=== PATIENT | female | born 1970 | race Caucasian/White ===

== ENCOUNTER 2023-12-18 12:35 | Outpatient (REF) | payer OTHER, SELFPAY ==
--- NOTE | ~2023-12-18 | XR_ITS ---
EXAMINATION: XR CLAVICLE, LEFT CLINICAL INFORMATION: Pain COMPARISON: None available. TECHNIQUE: 2 views of the left clavicle. FINDINGS: There is a mildly displaced comminuted fracture along the distal/lateral aspect of the clavicle. Mild degenerative changes in the acromioclavicular joint. XR/XR clavicle LT IMPRESSION: Mildly displaced comminuted fracture along the distal/lateral aspect of the clavicle. This study was presented to me on January 06 2024 for interpretation. PSA staff will provide results to referring provider at this time. Electronically signed by: Amy Licea MD 01/06/2024 12:02 PM EDT
== END 2023-12-18 12:36 | disposition home or self-care (01) ==
LOC: HO.HOSX 12:35
PROVIDERS: PCP Internal Medicine; Visit Provider Physician Assistant
DX: M25.512 Pain in left shoulder (principal); S42.033D Displaced fracture of lateral end of unspecified clavicle, subsequent encounter for fracture with routine healing
CPT/HCPCS: 73000; 99212

== ENCOUNTER 2023-12-18 12:56 | Outpatient (AMB) | payer MEDICAID, SELFPAY ==
--- NOTE | 2023-12-18 13:07 | A.OFFVIS_ITS ---
Intake Visit Reasons: FC- Comminuted fracture of the LT distal clavicle Intake Note: Vianney is a 53 year old right hand dominant female who presents today for a evaluation of her left distal clavicle fx, DOI 11/29/23. Patient reports she was playing outside with niece and she lost balance and she fell on her left side. She mentions that she is having mild pain on her shoulder and soreness. Allergies No Known Allergies Allergy (Verified 12/18/23 13:09) HPI HPI FC- Comminuted fracture of the LT distal clavicle: Details: 53-year-old female who presents in the office today, as a new patient, for an evaluation of left upper extremity pain. The patient was evaluated on 12/02/23 status post a fall. ? ? While in the office today, the patient reports she was playing outside with her niece when she lost her balance and fell on her left side. She claims to have mild pain and soreness in the left shoulder. ? [facility] Social History (Updated 12/18/23 @ 13:10 by Jared Cunha) Alcohol intake: current Alcohol intake frequency: holidays/special occasions only Patient Tobacco Use Status: Current everyday Tobacco user Cigarettes Per Day: 10 Current occupational status: unemployed Review of Systems Const All systems reviewed & are unremarkable except as noted in HPI and below Physical Exam Const General: cooperative and no acute distress Orientation/consciousness: patient oriented x3 Resp Effort & Inspection: normal respiratory effort and able to speak in complete sentences Cardio Peripheral pulses: Peripheral pulses 2+ throughout Skin General skin exam: no rashes or lesions noted Neuro General: patient oriented x3 Extrem Other: Left shoulder: Forward flexion and abduction to 90 degrees. External rotation to neutral. Tenderness to palpaiton over the the distal clavicle at the fracture site. NVI. Assessment & Plan Assessment & Plan (1) Closed fracture of distal clavicle: Code(s): S42.033A - Displaced fracture of lateral end of unspecified clavicle, initial encounter for closed fracture Category: Medical Plan Ms. Martinez is a 53-year-old female who presents in the office today, as a new patient, for an evaluation of left upper extremity pain. The patient was evaluated on 12/02/23 status post a fall. ? ? While in the office today, the patient reports she was playing outside with her niece when she lost her balance and fell on her left side. She claims to have mild pain and soreness in the left shoulder.? ? The patient is going to be referred to physical therapy to work on gentle ROM. Follow-up will be in six weeks with repeat x-rays, or sooner if need.? X-rays of the left clavicle which were obtained while in the office today and were reviewed by me, Alba Kovacs PA-C, revealed a left distal clavicle fracture. X-rays of the left chest, obtained on 12/02/23, revealed: Comminuted fractures of the distal left clavicle. Orders: Orders XR clavicle LT Today R52 - Pain, unspecified PT Evaluation and Treatment Today S42.033A - Displaced fracture of lateral end of unspecified clavicle, initial encounter for closed fracture Patient Instructions: Scribed by Renuka Almonte, medical accountant, for Alba Kovacs PA-C on 12/18/2023 at 1:00 pm, EST.? Coding Level of Care Code New Pt Level 4 (93607) Complex EM visit Add On G2211 Diagnoses Closed fracture of distal clavicle S42.033A
== END 2023-12-18 13:27 | disposition home or self-care (01) ==
PROVIDERS: Visit Provider Physician Assistant
DX: S42.032A Displaced fracture of lateral end of left clavicle, initial encounter for closed fracture (principal)
CPT/HCPCS: 99203

== ENCOUNTER 2024-02-02 12:16 | Outpatient (AMB) | payer OTHER, SELFPAY ==
--- NOTE | 2024-02-02 12:32 | MHC.OFFVIS ---
Intake Visit Reasons: OV - Lt distal clavicle fx, DOI 11/29/23 Intake Note: Vianney is a 53 year old left hand dominant female who presents today for a follow up of her Left Distal Clavicle Fx - DOI 11/29/23. Patient reports that she is doing well with some occasional pain of the clavicle with certain movements. She takes occasional Ibuprofen PRN pain. Allergies No Known Allergies Allergy (Verified 02/02/24 12:35) HPI HPI OV - Lt distal clavicle fx, DOI 11/29/23: Details: 53-year-old left hand dominant female who presents in the office today for a follow-up of left distal clavicle fracture status post a fall due to loss of balance when playing with her niece on 11/29/23. I last saw the patient in the office on 12/18/23, when she was referred to physical therapy. While in the office today, the patient reports experiencing occasional pain in the clavicle with certain movements; otherwise, she is doing well. She occasionally takes OTC ibuprofen PRN for pain. [facility], [facility] Social History (Updated 12/18/23 @ 13:10 by Jared Cunha) Alcohol intake: current Alcohol intake frequency: holidays/special occasions only Patient Tobacco Use Status: Current everyday Tobacco user Cigarettes Per Day: 10 Current occupational status: unemployed Review of Systems Const All systems reviewed & are unremarkable except as noted in HPI and below Physical Exam Const General: cooperative, healthy appearing and no acute distress Resp Effort & Inspection: normal respiratory effort and able to speak in complete sentences Cardio Rate: regular rate Peripheral pulses: Peripheral pulses 2+ throughout GI Palpation (GI): Soft to palpation Skin Lesions: no lesions Rashes: no rashes Extrem Other: Left shoulder: Normal to inspection. No ecchymosis, erythema, or edema. No skin tinting or open areas. She does report mild discomfort with the last 20 degrees of full flexion and abduction but is able to reach end range. Negative cross-body reach. Negative empty can. Negative drop arm. NVI. Assessment & Plan Assessment & Plan (1) Closed fracture of distal clavicle: Code(s): S42.033A - Displaced fracture of lateral end of unspecified clavicle, initial encounter for closed fracture Category: Medical Plan Ms. Martinez is a 53-year-old left hand dominant female who presents in the office today for a follow-up of left distal clavicle fracture status post a fall due to loss of balance when playing with her niece on 11/29/23. I last saw the patient in the office on 12/18/23, when she was referred to physical therapy. While in the office today, the patient reports experiencing occasional pain in the clavicle with certain movements; otherwise, she is doing well. She occasionally takes OTC ibuprofen PRN for pain. The patient was restricted doing overhead lifting, reaching, pushing, and pulling for until 8 weeks from the date of injury. We discussed the role of physical therapy but declined at this time due to having full ROM. Follow-up will be PRN, or sooner if needed. X-rays of the left shoulder, obtained on 12/18/23, which revealed: Left distal clavicle fracture. Patient Instructions: Scribed by Brianna Temple, biomedical engineering internship, for Alba Kovacs PA-C on 02/02/24 at 12:40 pm EST. Coding Level of Care Code Est Pt Level 3 (21252) Diagnoses Closed fracture of distal clavicle S42.033A
== END 2024-02-02 12:58 | disposition home or self-care (01) ==
PROVIDERS: PCP Internal Medicine; Visit Provider Physician Assistant
DX: S42.032A Displaced fracture of lateral end of left clavicle, initial encounter for closed fracture (principal)
CPT/HCPCS: 99213

== ENCOUNTER 2024-02-02 12:46 | Outpatient (REF) | payer OTHER, SELFPAY | END 2024-02-02 12:47 | disposition home or self-care (01) | LOC: HO.HOSX 12:46 | PROVIDERS: Visit Provider Physician Assistant | DX: S42.033A Displaced fracture of lateral end of unspecified clavicle, initial encounter for closed fracture (principal) | CPT/HCPCS: 99212 ==